=== PATIENT | female | born 1975 | race Caucasian/White ===

== ENCOUNTER 2018-01-15 05:46 | Inpatient (IN) | payer OTHER ==
[~2018-01-15] VITALS: Ht 157.5 cm; Wt 3.2 kg
[2018-01-18] MEDS ORDERED: PRENATAL 19 TA1 EAC1 PO (09:57)
[2018-01-18] MEDS ORDERED: PRENATAL 19 TA1 EACH PO ×2 (09:58→09:59)
[2018-01-18] MEDS ORDERED: INTEGRA PLUS C1 EACH PO (10:00)
== END 2018-01-18 12:19 | disposition home or self-care (01) | DRG 766 ==
LOC: LDR 05:46 → OB/GYN 05:46
PROVIDERS: Specialist
PROC: 3E033VJ Introduction of Other Hormone into Peripheral Vein, Percutaneous Approach (ICD-10-PCS; 2018-01-15)
PROC: 4A1HXCZ Monitoring of Products of Conception, Cardiac Rate, External Approach (ICD-10-PCS; 2018-01-15)
PROC: 10D00Z1 Extraction of Products of Conception, Low, Open Approach (ICD-10-PCS; principal; 2018-01-15 12:15)
DX: O65.4 Obstructed labor due to fetopelvic disproportion, unspecified (principal); O69.81X0 Labor and delivery complicated by cord around neck, without compression, not applicable or unspecified; O99.824 Streptococcus B carrier state complicating childbirth; Z3A.39 39 weeks gestation of pregnancy; Z37.0 Single live birth; O09.523 Supervision of elderly multigravida, third trimester